=== PATIENT | male | born 2000 | race Caucasian/White ===

== ENCOUNTER 2019-10-24 11:34 | Emergency (ER) | payer OTHER, SELFPAY ==
[2019-10-24 11:53] VITALS: BP 102/56; PULSE 81; RESP 14; TEMP 36.7; O2SAT 100
--- NOTE | 2019-10-24 12:44 | ED.URI ---
HPI - URI/Sore Throat General Chief Complaint: Upper Respiratory Infection Stated Complaint: cough fever sore throat Time Seen by Provider: 10/24/19 12:44 Source: patient, family and RN notes reviewed Mode of arrival: ambulatory Limitations: no limitations History of Present Illness HPI Narrative: 19-year-old male who presents to [facility] with complaints of sore throat, hoarseness and cough with intermittent fevers since Tuesday. Patient states that he has been taking Tana Jessup Flu medication OTC and Ibuprofen for his symptoms.Patient states that he has been expectorating some yellow mucous at times when he coughs, denies any shortness of breath or any wheezing, SAO2 100% on room air. Patient states that he did take a flu shot this year. MD elicited complaint: fever, cough, sore throat and rhinorrhea Onset (ago): day(s) (3 days) Severity: moderate Pain scale (0-10): 4 Description of mucous: yellow Able to tolerate fluids by mouth: Yes Exacerbating factors: swallowing Relieving factors: nothing Associated symptoms: fever, chills, voice changes, headache, rhinorrhea, nasal congestion, sore throat and cough Treatments prior to arrival: ibuprofen and cold medicine Related Data Allergies Allergy/AdvReac Type Severity Reaction Status Date / Time No Known Allergies Allergy Verified 10/24/19 12:08 Review of Systems Review of Systems: Narrative: CONSTITUTIONAL: Intermittent fever, chills, or sweats. EYES: Denies visual changes, redness, or discharge. ENT: clear rhinorrhea, congestion, sore throat, no otalgia. CARDIOVASCULAR: Denies chest pain, palpitations, or edema. RESPIRATORY: Positive cough denies dyspnea. GASTROINTESTINAL: Denies abdominal pain, nausea, vomiting, or diarrhea. GENITOURINARY: Denies dysuria or hematuria. SKIN: Denies rash or itching. MUSCULOSKELETAL: Reports back pain, joint pain, some body aches NEUROLOGIC positive frontal headache, no numbness, or weakness. PSYCHIATRIC: Denies anxiety or depression. All systems reviewed & are unremarkable except as noted in HPI and below PMFSH Past Medical History Medical History (Updated 10/26/19 @ 19:43 by Jaylene Boggs NP) Closed left ankle fracture Social History Social History (Updated 10/24/19 @ 12:56 by Jaylene L. Ambrose, UTILITY LOCATE TECHNICIAN) Smoking status: Never smoker Smokeless tobacco user: chewing tobacco Living arrangements: with family Gender identity (if verbalized by the patient): Male Comments At time of signature, agree with nursing past medical, surgical, social and family history. There is no relevant family history pertinent to the presenting complaint Exam Narrative: Exam Narrative: GENERAL: Well-appearing, well-nourished, and in no acute distress. HEAD: Normocephalic, atraumatic. EYES: PERRLA and EOMI. ENT: Nares red,clear rhinorrhea no epistaxis. Mucous membranes moist.TM's normal with good light reflex, throat red with no lesions or exudate tonsils red and swollen NECK: Supple.Lymphadenopathy CHEST: Clear to auscultation. No respiratory distress.cough occaisional yellow mucous, SAO2 99% on room air HEART: Regular rate and rhythm. No murmur heard. Normal peripheral pulses. ABDOMEN: Soft, nontender, nondistended, normal active bowel sounds. EXTREMITIES: Normal range of motion. No edema. SKIN: Warm, dry, no rash. NEURO: No focal deficits. Alert and oriented x3. Course Vital Signs Vital signs: Vital Signs Temperature 36.7 C 10/24/19 11:53 Pulse Rate 81 10/24/19 11:53 Respiratory Rate 14 10/24/19 11:53 Blood Pressure 102/56 L 10/24/19 11:53 Pulse Oximetry 100 10/24/19 11:53 Temperature 36.7 C 10/24/19 11:53 Pulse Rate 81 10/24/19 11:53 Respiratory Rate 14 10/24/19 11:53 Blood Pressure 102/56 L 10/24/19 11:53 Pulse Oximetry 100 10/24/19 11:53 MDM - URI/Sore Throat Differential Diagnosis Differential diagnosis: Likely upper respiratory infection, pharyngitis and other (strep pharyngitis, tonsilitis) L
== END 2019-10-24 13:07 | disposition home or self-care (01) ==
PROVIDERS: Emergency Provider Registered Nurse
DX: R05 Cough (principal); J03.90 Acute tonsillitis, unspecified
CPT/HCPCS: 87081; 87880; 99203; G0463